=== PATIENT | female | born 1965 | race American Indian/Alaskan Native ===

== ENCOUNTER 2018-06-23 10:41 | Inpatient (IN) | payer MEDICARE ==
[2018-06-23] MEDS ORDERED: NACL 0.9% 500 ML 500 ML IV ONE (11:22)
--- NOTE | 2018-06-23 11:25 | Emergency Department Report ---
ED General Adult HPI - General Chief complaint: Altered Mental Status Stated complaint: POSS SEIZURE Time Seen by Provider: 06/23/18 11:15 Source: EMS (ems notes not available at time of chart dictation), RN notes reviewed Mode of arrival: Stretcher Limitations: Other (patient is demented and is a poor historian) - History of Present Illness Initial comments: This is a 52-year-old female who is not known to this provider previously. She has a past medical history of dementia. History is obtained by speaking to her daughter, process; [phone]. The patient has a history of dementia, and as per her daughter is typically able to complete her activities of daily living with minimal assistance. The patient is typically able to feed herself and walk without significant assistance. As per the patient's daughter, who received report from the patient's home health aide, the patient screamed earlier on today, began shaking, leans to the left, and has some drooling from her lips. This has since resolved. It is unknown what time this happened exactly, unknown how long that lasted for, and unknown if it had any exacerbating or relieving factors. The patient is nonverbal and does not follow commands, therefore we cannot elicit any additional information. -: This morning Radiation: other Quality: other Consistency: other Improves with: other Worsens with: other Associated Symptoms: confusion, syncope, weakness - Related Data Home Medications Medication Instructions Recorded Confirmed Last Taken traZODone [Desyrel] 50 mg PO QHS 06/23/18 06/23/18 06/22/18 Allergies Allergy/AdvReac Type Severity Reaction Status Date / Time Penicillins Allergy Anaphylaxis Verified 02/16/16 09:32 ED Review of Systems ROS: Stated complaint: POSS SEIZURE Other details as noted in HPI Comment: ros per daughter ED Past Medical Hx - Past Medical History Previous Medical History?: Yes Hx Dementia: Yes - Social History Smoking Status: Unknown if ever smoked - Medications Home Medications: Home Medications Medication Instructions Recorded Confirmed Last Taken Type traZODone [Desyrel] 50 mg PO QHS 06/23/18 06/23/18 06/22/18 History ED Physical Exam - General Limitations: Altered Mental Status General appearance: in no apparent distress - Head Head exam: Present: atraumatic, normocephalic - Eye Eye exam: Present: other (the patient closes her eyes tightly and will not allow me to perform pupillary examination). Absent: scleral icterus, conjunctival injection, periorbital swelling, periorbital tenderness - ENT ENT exam: Present: normal exam, normal orophraynx, normal external ear exam - Neck Neck exam: Present: normal inspection, full ROM. Absent: tenderness, meningismus - Respiratory Respiratory exam: Present: normal lung sounds bilaterally. Absent: respiratory distress, wheezes, rales, rhonchi, stridor, chest wall tenderness, accessory muscle use, decreased breath sounds, prolonged expiratory - Cardiovascular Cardiovascular Exam: Present: regular rate, normal rhythm, normal heart sounds. Absent: bradycardia, tachycardia, irregular rhythm, systolic murmur, diastolic murmur, rubs, gallop - GI/Abdominal GI/Abdominal exam: Present: soft. Absent: distended, tenderness, guarding, rebound, rigid, pulsatile mass - Extremities Exam Extremities exam: Present: normal inspection, full ROM, normal capillary refill , other (2+ pulses noted in the bilateral upper, lower extremities. Compartments soft. No long bony tenderness. The pelvis is stable.). Absent: tenderness, pedal edema, joint swelling, calf tenderness - Back Exam Back exam: Present: normal inspection, full ROM. Absent: tenderness, CVA tenderness (R), paraspinal tenderness, vertebral tenderness - Neurological Exam Neurological exam: Present: alert (the patient is demented and will not cooperate with a complete neurologic examination), altered (patient is demented. Patient is a poor historian.), other (there is no facial droop. Patient has 5 out of 5 strength bilateral upper, lower extremities. Sensation is intact to pin prick in the bilateral upper, lower extremities) - Psychiatric Psychiatric exam: Present: flat affect, other (patient is nonverbal and will not talk to me) - Skin Skin exam: Present: warm ED Course Vital Signs 06/23/18 06/23/18 06/23/18 10:52 13:50 14:00 Temperature 98.5 F Pulse Rate 85 83 86 Respiratory 16 16 16 Rate Blood Pressure 146/63 119/69 O2 Sat by Pulse 95 94 Oximetry - Reevaluation(s) Reevaluation #1: 06/23/18 11:59 Differential diagnosis, including but not limited to: Intracranial hemorrhage, pneumonia, stroke, transient ischemic attack, structural cardiac disease, acute coronary syndrome, arrhythmia, orthostasis, seizure, pseudoseizure Assessment and plan: 52-year-old female who has baseline dementia with fairly good functional status as per her daughter, who also describes no DVT or pulmonary embolus risk factors, who does not have a history of seizures, who presents with loss of consciousness, now resolved. Patient started gives verbal consent for IV medication to allow diagnostic and laboratory acquisition , nausea gives verbal consent for physical restraints if necessary. Patient is not a TPA candidate as her last known well time is not exactly known. In addition, given her underlying dementia, she is not considered a suitable for endovascular intervention, and is not require an emergent CT angiogram. Her motor exam is nonfocal as no obvious facial droop. Laboratory studies, urinalysis, CT scan pending. Reevaluation #2: 06/23/18 14:40 CT scan of the brain is negative. Vital signs have remained stable. Objective laboratory testing unremarkable. Patient's daughter endorses that the patient had a similar episode 3 weeks ago of syncope versus seizure and was seen at another hospital and was discharged. Patient will be admitted to the hospital for evaluation of seizure versus syncope. Patient's daughter further reiterates that the patient is not at her mental status baseline currently. Dr. Willard accepted the medical patient to his service. ED Medical Decision Making - Lab Data Result diagrams: 06/23/18 13:06 06/23/18 13:06 Vital Signs 06/23/18 10:52 Temperature 98.5 F Pulse Rate 85 Respiratory 16 Rate Blood Pressure 146/63 O2 Sat by Pulse 95 Oximetry Lab Results 06/23/18 06/23/18 06/23/18 Range/Units 13:06 13:06 13:06 WBC 5.4 (4.5-11.0) K/mm3 RBC 4.20 (3.65-5.03) M/mm3 Hgb 12.0 (10.1-14.3) gm/dl Hct 36.9 (30.3-42.9) % MCV 88 (79-97) fl MCH 29 (28-32) pg MCHC 33 (30-34) % RDW 14.1 (13.2-15.2) % Plt Count 295 (140-440) K/mm3 PT 13.3 (12.2-14.9) Sec. INR 0.96 (0.87-1.13) APTT 27.7 (24.2-36.6) Sec. Sodium 138 (137-145) mmol/L Potassium 4.7 (3.6-5.0) mmol/L Chloride 103.4 (98-107) mmol/L Carbon Dioxide 22 (22-30) mmol/L Anion Gap 17 mmol/L BUN 13 (7-17) mg/dL Creatinine 0.8 (0.7-1.2) mg/dL Estimated GFR > 60 ml/min BUN/Creatinine Ratio 16 % Glucose 90 (65-100) mg/dL Calcium 9.1 (8.4-10.2) mg/dL Total Bilirubin 0.50 (0.1-1.2) mg/dL AST 26 (5-40) units/L ALT 25 (7-56) units/L Alkaline Phosphatase 88 (35-129) units/L Troponin T (0.00-0.029) ng/mL Total Protein 7.8 (6.3-8.2) g/dL Albumin 3.5 L (3.9-5) g/dL Albumin/Globulin Ratio 0.8 % TSH (0.270-4.200) mlU/mL Urine Color (Yellow) Urine Turbidity (Clear) Urine pH (5.0-7.0) Ur Specific [place] (1.003-1.030) Urine Protein (Negative) mg/dL Urine Glucose (UA) (Negative) mg/dL Urine Ketones (Negative) mg/dL Urine Blood (Negative) Urine Nitrite (Negative) Urine Bilirubin (Negative) Urine Urobilinogen (<2.0) mg/dL Ur Leukocyte Esterase (Negative) Urine WBC (Auto) (0.0-6.0) /HPF Urine RBC (Auto) (0.0-6.0) /HPF U Epithel Cells (Auto) (0-13.0) /HPF Urine Bacteria (Auto) (Negative) /HPF Urine Mucus /HPF Salicylates (2.8-20.0) mg/dL Acetaminophen (10.0-30.0) ug/mL Plasma/Serum Alcohol (0-0.07) % 06/23/18 06/23/18 06/23/18 Range/Units 13:06 13:06 13:06 WBC (4.5-11.0) K/mm3 RBC (3.65-5.03) M/mm3 Hgb (10.1-14.3) gm/dl Hct (30.3-42.9) % MCV (79-97) fl MCH (28-32) pg MCHC (30-34) % RDW (13.2-15.2) % Plt Count (140-440) K/mm3 PT (12.2-14.9) Sec. INR (0.87-1.13) APTT (24.2-36.6) Sec. Sodium (137-145) mmol/L Potassium (3.6-5.0) mmol/L Chloride (98-107) mmol/L Carbon Dioxide (22-30) mmol/L Anion Gap mmol/L BUN (7-17) mg/dL Creatinine (0.7-1.2) mg/dL Estimated GFR ml/min BUN/Creatinine Ratio % Glucose (65-100) mg/dL Calcium (8.4-10.2) mg/dL Total Bilirubin (0.1-1.2) mg/dL AST (5-40) units/L ALT (7-56) units/L Alkaline Phosphatase (35-129) units/L Troponin T (0.00-0.029) ng/mL Total Protein (6.3-8.2) g/dL Albumin (3.9-5) g/dL Albumin/Globulin Ratio % TSH 2.000 (0.270-4.200) mlU/mL Urine Color (Yellow) Urine Turbidity (Clear) Urine pH (5.0-7.0) Ur Specific [place] (1.003-1.030) Urine Protein (Negative) mg/dL Urine Glucose (UA) (Negative) mg/dL Urine Ketones (Negative) mg/dL Urine Blood (Negative) Urine Nitrite (Negative) Urine Bilirubin (Negative) Urine Urobilinogen (<2.0) mg/dL Ur Leukocyte Esterase (Negative) Urine WBC (Auto) (0.0-6.0) /HPF Urine RBC (Auto) (0.0-6.0) /HPF U Epithel Cells (Auto) (0-13.0) /HPF Urine Bacteria (Auto) (Negative) /HPF Urine Mucus /HPF Salicylates < 0.3 L (2.8-20.0) mg/dL Acetaminophen < 5.0 L (10.0-30.0) ug/mL Plasma/Serum Alcohol (0-0.07) % 06/23/18 06/23/18 06/23/18 Range/Units 13:06 13:06 13:06 WBC (4.5-11.0) K/mm3 RBC (3.65-5.03) M/mm3 Hgb (10.1-14.3) gm/dl Hct (30.3-42.9) % MCV (79-97) fl MCH (28-32) pg MCHC (30-34) % RDW (13.2-15.2) % Plt Count (140-440) K/mm3 PT (12.2-14.9) Sec. INR (0.87-1.13) APTT (24.2-36.6) Sec. Sodium (137-145) mmol/L Potassium (3.6-5.0) mmol/L Chloride (98-107) mmol/L Carbon Dioxide (22-30) mmol/L Anion Gap mmol/L BUN (7-17) mg/dL Creatinine (0.7-1.2) mg/dL Estimated GFR ml/min BUN/Creatinine Ratio % Glucose (65-100) mg/dL Calcium (8.4-10.2) mg/dL Total Bilirubin (0.1-1.2) mg/dL AST (5-40) units/L ALT (7-56) units/L Alkaline Phosphatase (35-129) units/L Troponin T < 0.010 (0.00-0.029) ng/mL Total Protein (6.3-8.2) g/dL Albumin (3.9-5) g/dL Albumin/Globulin Ratio % TSH (0.270-4.200) mlU/mL Urine Color Yellow (Yellow) Urine Turbidity Clear (Clear) Urine pH 6.0 (5.0-7.0) Ur Specific [place] 1.014 (1.003-1.030) Urine Protein <15 mg/dl (Negative) mg/dL Urine Glucose (UA) Neg (Negative) mg/dL Urine Ketones Neg (Negative) mg/dL Urine Blood Neg (Negative) Urine Nitrite Neg (Negative) Urine Bilirubin Neg (Negative) Urine Urobilinogen < 2.0 (<2.0) mg/dL Ur Leukocyte Esterase Neg (Negative) Urine WBC (Auto) 1.0 (0.0-6.0) /HPF Urine RBC (Auto) 3.0 (0.0-6.0) /HPF U Epithel Cells (Auto) < 1.0 (0-13.0) /HPF Urine Bacteria (Auto) 1+ (Negative) /HPF Urine Mucus Few /HPF Salicylates (2.8-20.0) mg/dL Acetaminophen (10.0-30.0) ug/mL Plasma/Serum Alcohol < 0.01 (0-0.07) % - EKG Data -: EKG Interpreted by Me EKG shows normal: sinus rhythm - EKG Data When compared to previous EKG there are: previous EKG unavailable 06/23/18 12:02 Sinus, 82 bpm, left axis deviation, left anterior fascicular block, prolonged borderline UT interval, abnormal EKG, not a STEMI, poor R-wave progression. - Radiology Data Radiology results: pending, report reviewed, image reviewed Noncontrast CT scan of the brain is negative. X-ray the chest is negative. Critical care attestation.: If time is entered above; I have spent that time in minutes in the direct care of this critically ill patient, excluding procedure time. ED Disposition Clinical Impression: Altered mental status, unspecified Disposition: DC-[id number] OP ADMIT IP TO THIS HOSP Is pt being admited?: Yes Does the pt Need Aspirin: Yes Condition: Good Referrals: PRIMARY CARE, [Primary Care Provider] - 3-5 Days - Assessment Assessment Interval: Baseline - Level of Consciousness 1a. Level of Consciousness: not alert, arousable - LOC Questions 1b. LOC Questions: answers no questions correctly - LOC Command 1c. LOC Commands: performs no tasks correctly - Best Gaze 2. Best Gaze: normal (unable to assess) - Visual 3. Visual: bilateral hemianopia (unable to assess) - Facial Palsy 4. Facial Palsy: normal symmetrical movement - Motor Arm 5b. Motor Arm Right: drift 5a. Motor Arm Left: drift - Motor Leg 6a. Motor Leg Left: drift 6b. Motor Leg Right: drift - Limb Ataxia 7. Limb Ataxia: amputation (unable to assess) - Sensory 8. Sensory: normal - Best Language 9. Best Language: mute/global aphasia - Dysarthria 10. Dysarthria: intubated or other barrier - Extinction and Inattention 11. Extinction/Inattention: visual/tactile inattention
[2018-06-23] MEDS ORDERED: ATIVAN IV STA (11:50)
--- NOTE | 2018-06-23 11:54 | XRay Report ---
AP CHEST: HISTORY: Altered mental status There is poor inspiration. AP view of the chest demonstrates a normal mediastinal and cardiac contour with clear lungs and normal bony and soft tissue structures. IMPRESSION: Unremarkable AP chest.
--- NOTE | 2018-06-23 12:23 | Cat Scan Report ---
CT HEAD WITHOUT CONTRAST: HISTORY: Altered mental status. TECHNIQUE: Sequential 2.5mm CT images. COMPARISON: none. FINDINGS: Cerebral Parenchyma: Within normal limits. Cerebellum: Within normal limits. Brainstem: Within normal limits. Ventricles: Normal. Sella: Normal. Extra-axial spaces: Normal. Basal Cisterns: Normal. Intracranial Hemorrhage: None. Midline Shift: None. Calvarium: Normal. Sinuses: Normal. Mastoid Air Cells: Normal. Visualized Orbits: Normal. IMPRESSION: Cranial CT scan within normal limits.
[2018-06-23 13:23] LABS: Bacteria,Urine 1+ /HPF (Negative); Bilirubin,Urine NEG (Negative); Blood,Urine NEG (Negative); Color,Urine Yellow (Yellow); Mucus,Urine FEW /HPF; Protein,Urine <15 mg/dL mg/dL (Negative); Urobilinogen,Urine < 2.0 mg/dL (<2.0)
[2018-06-23 13:33] LABS: Hematocrit 36.9 % (30.3-42.9); Mean Corpuscular HGB Conc 33 % (30-34); Mean Corpuscular Hemoglobin 29 pg (28-32); Mean Corpuscular Volume 88 fl (79-97); Platelet Count 295 K/mm3 (140-440); Red Cell Distribution Width 14.1 % (13.2-15.2)
[2018-06-23 13:44] LABS: INR 0.96 (0.87-1.13); Partial Thromboplastin Time 27.7 Sec. (24.2-36.6)
[2018-06-23 13:54] LABS: Alanine Aminotransferase 25 units/L (7-56); Albumin 3.5 g/dL (3.9-5); BUN/Creatinine Ratio 16; Blood Urea Nitrogen 13 mg/dL (7-17); Calcium 9.1 mg/dL (8.4-10.2); Hemolysis Index 20
[2018-06-23] MEDS ORDERED: BABY ASPIRIN PO ONE (14:41)
--- NOTE | 2018-06-23 14:41 | History and Physical Report ---
History of Present Illness Chief complaint: She is confused, and not moving History of present illness: 52 YO Female with Dementia, Debility presents to ED for evaluation. Pt is confused and unable to provide history. Pt daughter is at bedside and provides history. As per daughter, the patient experienced an acute onset of weakness resulting in an inability to move the left side of her body, as well as drooling from the mouth. EMS was notified, and upon arrival the patient was found to be weak and confused. Pt transported to [facility] for further care and evaluation. Pt seen and evaluated in ED and found to have symptoms consistent with Acute CVA, as well as encephalopathy. Pt is outside therapeutic window for TPA at time of my exam. No further history available. Pt admitted to telemetry and initiated on CVA protocol. Past History Past Medical History: other (Dementia) Past Surgical History: No surgical history, Other (reviewed) Social history: . denies: smoking, alcohol abuse, prescription drug abuse Family history: hypertension Medications and Allergies Allergies Allergy/AdvReac Type Severity Reaction Status Date / Time Penicillins Allergy Anaphylaxis Verified 02/16/16 09:32 Home Medications Medication Instructions Recorded Confirmed Last Taken Type traZODone [Desyrel] 50 mg PO QHS 06/23/18 06/23/18 06/22/18 History Review of Systems ROS unobtainable: due to mental status Exam - Constitutional Vitals: Temp Pulse Resp BP Pulse Ox 98.5 F 86 16 119/69 94 06/23/18 10:52 06/23/18 14:00 06/23/18 14:00 06/23/18 14:00 06/23/18 14:00 General appearance: Present: mild distress - EENT Eyes: Present: miosis - Neck Neck: Present: supple - Respiratory Respiratory effort: normal Respiratory: bilateral: CTA - Cardiovascular Heart Sounds: Present: S1 & S2. Absent: rub, click - Extremities Extremities: pulses symmetrical, No edema Peripheral Pulses: within normal limits - Abdominal General gastrointestinal: Present: soft, non-tender, non-distended, normal bowel sounds Female genitourinary: Present: normal - Integumentary Integumentary: Present: clear, dry, decreased turgor - Musculoskeletal Musculoskeletal: generalized weakness - Psychiatric Psychiatric: no intact judgment & insight, no memory intact - Neurologic Neurologic: no CNII-XII intact, focal deficits, no gait normal Results - Labs CBC & Chem 7: 06/23/18 13:06 06/23/18 13:06 Labs: Abnormal lab results 06/23/18 06/23/18 06/23/18 Range/Units 13:06 13:06 13:06 Total Creatine Kinase 209 H (30-135) units/L Albumin 3.5 L (3.9-5) g/dL Salicylates < 0.3 L (2.8-20.0) mg/dL Acetaminophen < 5.0 L (10.0-30.0) ug/mL Assessment and Plan - Patient Problems (1) CVA (cerebral vascular accident) Current Visit: Yes Status: Acute Qualifiers: Precerebral and cerebral artery: middle cerebral artery Laterality of affected vessel: right Plan to address problem: Admit to telemetry: Stroke protocol, CT head, MRI Brain, MRA Brain, Echo, Carotid Doppler, Lipid panel, Statin Therapy, EEG, PT/OT/ Speech therapy (2) Encephalopathy Current Visit: Yes Status: Acute Plan to address problem: CT head, neuro checks, aspiration precautions, fall precautions, seizure precautions, (3) DVT prophylaxis Current Visit: Yes Status: Acute Plan to address problem: SCD to BLE while in bed.
[2018-06-23] MEDS ORDERED: PHENERGAN PR PRN (14:42)
[2018-06-23] MEDS ORDERED: REGLAN PO PRN (14:42)
[2018-06-23] MEDS ORDERED: ZOFRAN IV PRN (14:42)
[2018-06-23] MEDS ORDERED: MILK OF MAGNESIA PO PRN (14:42)
[2018-06-23] MEDS ORDERED: TYLENOL PO PRN (14:42)
[2018-06-23] MEDS ORDERED: DULCOLAX PR PRN (14:42)
[2018-06-23] MEDS ORDERED: PROVENTIL IH PRN (14:42)
[2018-06-23] MEDS ORDERED: BABY ASPIRIN ONE (17:31)
[2018-06-24] MEDS: DESYREL PO SCH ×2 (00:20→23:59)
[2018-06-24 06:20] LABS: Chol/HDL Ratio 3.41 %
--- NOTE | 2018-06-24 09:29 | Progress Note ---
Assessment and Plan Assessment and plan: --Seizure generalized; seizure-like activities Seizure precautions, antiepileptic medications, Ativan when necessary Neuro workup is in progress --Aphasia; unknown etiology Daughter reports patient stopped talking and is noncommunicative --Hypertension; continue current antihypertensives and when necessary medications --History of memory loss; Supportive care, check B12 and folic acid vitamin D levels --DVT prophylaxis; Lovenox Consult neurology, follow neurology workup --DC planning for case management; possible placement versus home with home health when medically stable History Interval history: Patient seen and examined medical records reviewed No new events reported by nursing staff Admitted with seizure-like symptoms and questionable CVA Neuro workup is in progress The patient is alert noncommunicative Vital signs reviewed Hospitalist Physical - Constitutional Vitals: Temp Pulse Resp BP Pulse Ox 98.3 F 80 20 167/89 100 06/24/18 04:56 06/24/18 04:18 06/24/18 04:56 06/24/18 04:18 06/24/18 04:18 General appearance: Present: no acute distress, well-nourished, obese, other ( noncommunicative) - EENT Eyes: Present: PERRL, EOM intact - Neck Neck: Present: supple, normal ROM - Respiratory Respiratory effort: normal Respiratory: bilateral: diminished, negative: rales, rhonchi, wheezing - Cardiovascular Rhythm: regular Heart Sounds: Present: S1 & S2 - Extremities Extremities: no ischemia, No edema - Abdominal General gastrointestinal: soft, non-tender, non-distended, normal bowel sounds - Integumentary Integumentary: Present: clear, warm - Psychiatric Psychiatric: other (noncommunicative) - Neurologic Neurologic: other ( noncommunicative) Results - Labs CBC & Chem 7: 06/23/18 13:06 06/23/18 13:06 Labs: Laboratory Last Values WBC 5.4 K/mm3 (4.5-11.0) 06/23/18 13:06 RBC 4.20 M/mm3 (3.65-5.03) 06/23/18 13:06 Hgb 12.0 gm/dl (10.1-14.3) 06/23/18 13:06 Hct 36.9 % (30.3-42.9) 06/23/18 13:06 MCV 88 fl (79-97) 06/23/18 13:06 MCH 29 pg (28-32) 06/23/18 13:06 MCHC 33 % (30-34) 06/23/18 13:06 RDW 14.1 % (13.2-15.2) 06/23/18 13:06 Plt Count 295 K/mm3 (140-440) 06/23/18 13:06 PT 13.3 Sec. (12.2-14.9) 06/23/18 13:06 INR 0.96 (0.87-1.13) 06/23/18 13:06 APTT 27.7 Sec. (24.2-36.6) 06/23/18 13:06 Sodium 138 mmol/L (137-145) 06/23/18 13:06 Potassium 4.7 mmol/L (3.6-5.0) 06/23/18 13:06 Chloride 103.4 mmol/L (98-107) 06/23/18 13:06 Carbon Dioxide 22 mmol/L (22-30) 06/23/18 13:06 Anion Gap 17 mmol/L 06/23/18 13:06 BUN 13 mg/dL (7-17) 06/23/18 13:06 Creatinine 0.8 mg/dL (0.7-1.2) 06/23/18 13:06 Estimated GFR > 60 ml/min 06/23/18 13:06 BUN/Creatinine Ratio 16 % 06/23/18 13:06 Glucose 90 mg/dL (65-100) 06/23/18 13:06 Calcium 9.1 mg/dL (8.4-10.2) 06/23/18 13:06 Total Bilirubin 0.50 mg/dL (0.1-1.2) 06/23/18 13:06 AST 26 units/L (5-40) 06/23/18 13:06 ALT 25 units/L (7-56) 06/23/18 13:06 Alkaline Phosphatase 88 units/L (35-129) 06/23/18 13:06 Total Creatine Kinase 209 units/L (30-135) H 06/23/18 13:06 Troponin T < 0.010 ng/mL (0.00-0.029) 06/23/18 13:06 Total Protein 7.8 g/dL (6.3-8.2) 06/23/18 13:06 Albumin 3.5 g/dL (3.9-5) L 06/23/18 13:06 Albumin/Globulin Ratio 0.8 % 06/23/18 13:06 Triglycerides 68 mg/dL (2-149) 06/24/18 04:40 Cholesterol 147 mg/dL (50-199) 06/24/18 04:40 LDL Cholesterol Direct 99 mg/dL (50-130) 06/24/18 04:40 HDL Cholesterol 43 mg/dL (40-59) 06/24/18 04:40 Cholesterol/HDL Ratio 3.41 % 06/24/18 04:40 TSH 2.000 mlU/mL (0.270-4.200) 06/23/18 13:06 Urine Color Yellow (Yellow) 06/23/18 13:06 Urine Turbidity Clear (Clear) 06/23/18 13:06 Urine pH 6.0 (5.0-7.0) 06/23/18 13:06 Ur Specific [place] 1.014 (1.003-1.030) 06/23/18 13:06 Urine Protein <15 mg/dl mg/dL (Negative) 06/23/18 13:06 Urine Glucose (UA) Neg mg/dL (Negative) 06/23/18 13:06 Urine Ketones Neg mg/dL (Negative) 06/23/18 13:06 Urine Blood Neg (Negative) 06/23/18 13:06 Urine Nitrite Neg (Negative) 06/23/18 13:06 Urine Bilirubin Neg (Negative) 06/23/18 13:06 Urine Urobilinogen < 2.0 mg/dL (<2.0) 06/23/18 13:06 Ur Leukocyte Esterase Neg (Negative) 06/23/18 13:06 Urine WBC (Auto) 1.0 /HPF (0.0-6.0) 06/23/18 13:06 Urine RBC (Auto) 3.0 /HPF (0.0-6.0) 06/23/18 13:06 U Epithel Cells (Auto) < 1.0 /HPF (0-13.0) 06/23/18 13:06 Urine Bacteria (Auto) 1+ /HPF (Negative) 06/23/18 13:06 Urine Mucus Few /HPF 06/23/18 13:06 Salicylates < 0.3 mg/dL (2.8-20.0) L 06/23/18 13:06 Acetaminophen < 5.0 ug/mL (10.0-30.0) L 06/23/18 13:06 Plasma/Serum Alcohol < 0.01 % (0-0.07) 06/23/18 13:06
[2018-06-24] MEDS: ASPIRIN PO SCH (11:46)
[2018-06-24] MEDS ORDERED: ATIVAN IV ONE (13:40)
[2018-06-24] MEDS ORDERED: ATIVAN IV NR (14:00)
--- NOTE | 2018-06-24 14:27 | Consultation ---
History of Present Illness Consult date: 06/24/18 Requesting physician: EDDIE VANN Reason for Consult: seizure, dysphasia Chief complaint: seizure, dysphasia History of present illness: This 52-year-old right-handed -[place] female with a history of dementia for one or 2 years had an episode yesterday around 10 AM of a scream followed by shaking and drooling. This happened also in the first week of May for which she was seen at [facility] where CT scan was negative but no other testing was done. She been seen in [place] in the past for dementia but no MRI or PET scan was done or EEG. No medications were given. She's had greatly decreased speech for the past 3-5 months but she will utter an occasional phrase. Past History Past Medical History: hypertension (previous on medication but has not needed them for a while), other (Dementia). denies: CAD, diabetes, stroke Past Surgical History: No surgical history, hysterectomy (total), Other ( required transfusion after delivery) Social history: (2 children and 2 grandchildren alive and well), other ( has not worked for 6 or 7 years, previously worked in daycare). denies: smoking , alcohol abuse, prescription drug abuse, IV drug use Family history: hypertension (mother and sister), other (no history of epilepsy , fairly early onset dementia in her mother at age 53, maternal uncle in late 50s and maternal aunt in her 50s). denies: diabetes, stroke Medications and Allergies Allergies Allergy/AdvReac Type Severity Reaction Status Date / Time Penicillins Allergy Anaphylaxis Verified 02/16/16 09:32 Home Medications Medication Instructions Recorded Confirmed Last Taken Type traZODone [Desyrel] 50 mg PO QHS 06/23/18 06/23/18 06/22/18 History Active Meds: Active Medications Acetaminophen (Tylenol) 650 mg PO Q4H PRN PRN Reason: Pain, Mild (1-3) Albuterol (Proventil) 2.5 mg IH Q3HRT PRN PRN Reason: Shortness Of Breath Aspirin (Aspirin) 325 mg PO QDAY [facility] Last Admin: 06/24/18 11:46 Dose: 325 mg Atorvastatin Calcium (Lipitor) 40 mg PO QHS [facility] Last Admin: 06/24/18 00:20 Dose: Not Given Bisacodyl (Dulcolax) 10 mg MI QDAY PRN PRN Reason: Constipation Lorazepam (Ativan) 2 mg IV STRIPER SPRAY GUN NR Magnesium Hydroxide (Milk Of Magnesia) 30 ml PO Q4H PRN PRN Reason: Constipation Metoclopramide HCl (Reglan) 10 mg PO Q6H PRN PRN Reason: Nausea And Vomiting Ondansetron HCl (Zofran) 4 mg IV Q8H PRN PRN Reason: Nausea And Vomiting Promethazine HCl (Phenergan) 25 mg MI Q6H PRN PRN Reason: Nausea And Vomiting Sodium Chloride (Sodium Chloride Flush Syringe 10 Ml) 10 ml IV PRN PRN PRN Reason: LINE FLUSH Trazodone HCl (Desyrel) 50 mg PO QHS [facility] Last Admin: 06/24/18 00:20 Dose: Not Given Review of Systems All systems: negative (no headaches or dizziness, loud snoring but no pauses and never tested for sleep apnea, naps for an hour but no other dozing off, sleeps for 8 hours) Physical Examination - Vital Signs Vital Signs: Vital Signs Temp Pulse Resp BP Pulse Ox 98.5 F 85 16 146/63 95 06/23/18 10:52 06/23/18 10:52 06/23/18 10:52 06/23/18 10:52 06/23/18 10:52 - Physical Exam Narrative exam: General Appearance: well developed but borderline obese (per BMI) early 50s -[place] female in [facility], seen with her daughter. HEENT: atraumatic, normocephalic; no bruits, 2+ [place] without soreness or induration or enlargement, sclerae nonicteric. Oropharynx pink and moist. Neck: supple, no bruits. Heart: no murmur or extra sounds. Extremities: no clubbing, cyanosis or edema. 2+ dorsalis pedis pulses bilaterally. Neurologic Exam: Mental Status: Awake, alert, will not respond to orientation questions, says only a few words occasionally, will not name her daughter or the president etc. Cannot do calculations but does name "comb" but not the teeth of the comb, will not name "pen" or "keys". Cranial Nerves: sandoval full to threat, can't see discs due to lack of cooperation, PERRL, EOMs full obtain easily without nystagmus, facial sensation intact to pinprick, no facial weakness, cannot answer for Zepeda testing, not see palate due to prominent suck response and cannot reach back of throat to check gags, will not do shoulder shrug or tongue protrusion despite visual examples. Cerebellar: won't do finger to nose or heel to pitts or tandem. Sensory: intact to pinprick, cannot check vibrations or light touch or double simultaneous stimulation is intact. Motor Exam Upper Extremities: no drift when hands are placed in the air but quickly folds her arms across each other, Sarah Beth intact. 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 No atrophy or fasciculations are noted visually. Motor Exam Lower Extremities: walks ok with bilateral support but cannot walk on heels or toes. Will not do pedal push on either side but quadriceps are 4- bilaterally, triggered reflexively to touch. Sarah Beth shows normal wiggling of feet. Tone is normal. No atrophy or fasciculations are noted visually. Reflexes: Palmomental and jaw jerk are negative but snout is positive and she has a prominent suck reflex. Triceps are trace, biceps are trace and brachioradialis are 1 right and trace left. Carl's is negative bilaterally. Knee jerks are 0 right and 1 left and ankle jerks are 1+ bilaterally without clonus. Toes are downgoing bilaterally to Babinski testing. - Assessment Assessment Interval: Baseline - Level of Consciousness 1a. Level of Consciousness: not alert, arousable - LOC Questions 1b. LOC Questions: answers no questions correctly - LOC Command 1c. LOC Commands: performs no tasks correctly - Best Gaze 2. Best Gaze: normal (unable to assess) - Visual 3. Visual: bilateral hemianopia (unable to assess) - Facial Palsy 4. Facial Palsy: normal symmetrical movement - Motor Arm 5b. Motor Arm Right: drift - Motor Leg 6a. Motor Leg Left: drift - Limb Ataxia 7. Limb Ataxia: amputation (unable to assess) - Sensory 8. Sensory: normal - Best Language 9. Best Language: mute/global aphasia - Dysarthria 10. Dysarthria: intubated or other barrier - Extinction and Inattention 11. Extinction/Inattention: visual/tactile inattention Results - Laboratory Findings CBC and BMP: 06/23/18 13:06 06/23/18 13:06 Abnormal Lab Findings: Abnormal Labs 06/23/18 06/23/18 06/23/18 13:06 13:06 13:06 Total Creatine Kinase 209 H Albumin 3.5 L Salicylates < 0.3 L Acetaminophen < 5.0 L Assessment and Plan Impression: 1. Dysphasia 2. Secondarily generalized seizures, nonintractable 3. Memory loss Plan: 1. MRI brain noncontrast with noncontrast brain MRA. 2. Will need CT angiogram of neck from aortic arch to base of skull for completeness if any strokes, old or new are seen. 3. EEG. I explained this may be normal even with seizures since it is a small snapshot in time. 4. Memory labs including vitamin D 25 OH, ESR, CRP. 5. Will start her on divalproex for seizures 500 mg bid after 2000 mg iv loading dose. See my comments about further building it up. Later a new neurologist might consider changing her to lamotrigine. 6. LDL is 99 so probably only needs 10 or 20 mg atorvastatin since she was not on a statin. Agree with aspirin but could reduce to 81 mg chewable aspirin daily. Local neurologist can decide whether to pursue 30 day event monitoring for PAF. Echo has been done but no reading yet. 70 minutes spent including review of CT scan multiple images and discussion with daughter and difficult exam due to dysphasia. Thank you for an interesting consultation on this unfortunate early 50s lady. I will provide an EEG preliminary reading. Signing off, call for any questions or unusual test results. She should be followed by a local neurologist for dementia and seizures. May be a candidate for memantine. Would avoid Aricept ( donepezil) since it can cause seizures.
[2018-06-24] MEDS ORDERED: NACL 0.9% IV ONE (14:57)
[2018-06-24] MEDS ORDERED: DEPACON IV ONE (14:57)
--- NOTE | 2018-06-24 16:58 | Electroencephalogram Report ---
Electroencephalogram EEG Date of exam: 06/24/18 Description: EEG preliminary findings: EEG was done after administration of Ativan. No clear alpha activity is seen. EMG and movement artifact is prominent. There are few instances of a small sharp spike in the left temporal region with phase reversal at T5 as for example in the the 7th second of the page with elapsed time stamp 00:04:30 and at the same timing for elapsed time stamp 00:04:40. Intermittent slowing is seen bilaterally attributable to drowsiness. Though small sharp spikes are usually not considered abnormal, the fact that they are unilateral suggests they may be epileptiform. Interpretation: Preliminary EEG reading: Abnormal waking and drowsy electroencephalogram due to intermittent possibly epileptiform activity in the left temporal region.
--- NOTE | 2018-06-25 09:52 | Progress Note ---
Assessment and Plan Assessment and plan: --Seizure generalized; seizure-like activities Seizure precautions, antiepileptic medications, Ativan when necessary Neuro workup is in progress, follow MRI/MRA --Aphasia; unknown etiology Daughter reports patient stopped talking and is noncommunicative --Hypertension; continue current antihypertensives and when necessary medications --History of memory loss; Supportive care, check B12 and folic acid vitamin D levels --DVT prophylaxis; Lovenox Consult neurology, follow neurology workup --DC planning for case management; possible placement versus home with home health when medically stable History Interval history: Patient seen and examined medical records reviewed No new events reported by the nursing Neuro workup is in progress Patient is responding to very simple questions by telling her name Vital signs reviewed Hospitalist Physical - Constitutional Vitals: Temp Pulse Resp BP Pulse Ox 98.3 F 85 18 126/78 99 06/25/18 06:39 06/25/18 06:39 06/25/18 06:39 06/25/18 06:39 06/25/18 06:39 General appearance: Present: no acute distress, well-nourished, obese, other ( noncommunicative) - EENT Eyes: Present: PERRL, EOM intact - Neck Neck: Present: supple, normal ROM - Respiratory Respiratory effort: normal Respiratory: bilateral: diminished, negative: rales, rhonchi, wheezing - Cardiovascular Rhythm: regular Heart Sounds: Present: S1 & S2 - Extremities Extremities: no ischemia, No edema - Abdominal General gastrointestinal: soft, non-tender, non-distended, normal bowel sounds - Integumentary Integumentary: Present: clear, warm - Psychiatric Psychiatric: appropriate mood/affect, cooperative - Neurologic Neurologic: CNII-XII intact, moves all extremities Results - Labs CBC & Chem 7: 06/23/18 13:06 06/23/18 13:06 Labs: Laboratory Last Values WBC 5.4 K/mm3 (4.5-11.0) 06/23/18 13:06 RBC 4.20 M/mm3 (3.65-5.03) 06/23/18 13:06 Hgb 12.0 gm/dl (10.1-14.3) 06/23/18 13:06 Hct 36.9 % (30.3-42.9) 06/23/18 13:06 MCV 88 fl (79-97) 06/23/18 13:06 MCH 29 pg (28-32) 06/23/18 13:06 MCHC 33 % (30-34) 06/23/18 13:06 RDW 14.1 % (13.2-15.2) 06/23/18 13:06 Plt Count 295 K/mm3 (140-440) 06/23/18 13:06 ESR 67 mm/Hr (0-20) 06/24/18 16:11 PT 13.3 Sec. (12.2-14.9) 06/23/18 13:06 INR 0.96 (0.87-1.13) 06/23/18 13:06 APTT 27.7 Sec. (24.2-36.6) 06/23/18 13:06 Sodium 138 mmol/L (137-145) 06/23/18 13:06 Potassium 4.7 mmol/L (3.6-5.0) 06/23/18 13:06 Chloride 103.4 mmol/L (98-107) 06/23/18 13:06 Carbon Dioxide 22 mmol/L (22-30) 06/23/18 13:06 Anion Gap 17 mmol/L 06/23/18 13:06 BUN 13 mg/dL (7-17) 06/23/18 13:06 Creatinine 0.8 mg/dL (0.7-1.2) 06/23/18 13:06 Estimated GFR > 60 ml/min 06/23/18 13:06 BUN/Creatinine Ratio 16 % 06/23/18 13:06 Glucose 90 mg/dL (65-100) 06/23/18 13:06 Calcium 9.1 mg/dL (8.4-10.2) 06/23/18 13:06 Total Bilirubin 0.50 mg/dL (0.1-1.2) 06/23/18 13:06 AST 26 units/L (5-40) 06/23/18 13:06 ALT 25 units/L (7-56) 06/23/18 13:06 Alkaline Phosphatase 88 units/L (35-129) 06/23/18 13:06 Total Creatine Kinase 209 units/L (30-135) H 06/23/18 13:06 Troponin T < 0.010 ng/mL (0.00-0.029) 06/23/18 13:06 C-Reactive Protein 1.90 mg/dL (0.00-1.30) H 06/24/18 16:21 Total Protein 7.8 g/dL (6.3-8.2) 06/23/18 13:06 Albumin 3.5 g/dL (3.9-5) L 06/23/18 13:06 Albumin/Globulin Ratio 0.8 % 06/23/18 13:06 Triglycerides 68 mg/dL (2-149) 06/24/18 04:40 Cholesterol 147 mg/dL (50-199) 06/24/18 04:40 LDL Cholesterol Direct 99 mg/dL (50-130) 06/24/18 04:40 HDL Cholesterol 43 mg/dL (40-59) 06/24/18 04:40 Cholesterol/HDL Ratio 3.41 % 06/24/18 04:40 Vitamin B12 514.3 pg/mL (211-911) 06/24/18 16:20 Folate 17.06 ng/mL (7.3-26.0) 06/24/18 16:21 TSH 2.000 mlU/mL (0.270-4.200) 06/23/18 13:06 Free T4 1.23 ng/dL (0.76-1.46) 06/24/18 16:11 Urine Color Yellow (Yellow) 06/23/18 13:06 Urine Turbidity Clear (Clear) 06/23/18 13:06 Urine pH 6.0 (5.0-7.0) 06/23/18 13:06 Ur Specific [place] 1.014 (1.003-1.030) 06/23/18 13:06 Urine Protein <15 mg/dl mg/dL (Negative) 06/23/18 13:06 Urine Glucose (UA) Neg mg/dL (Negative) 06/23/18 13:06 Urine Ketones Neg mg/dL (Negative) 06/23/18 13:06 Urine Blood Neg (Negative) 06/23/18 13:06 Urine Nitrite Neg (Negative) 06/23/18 13:06 Urine Bilirubin Neg (Negative) 06/23/18 13:06 Urine Urobilinogen < 2.0 mg/dL (<2.0) 06/23/18 13:06 Ur Leukocyte Esterase Neg (Negative) 06/23/18 13:06 Urine WBC (Auto) 1.0 /HPF (0.0-6.0) 06/23/18 13:06 Urine RBC (Auto) 3.0 /HPF (0.0-6.0) 06/23/18 13:06 U Epithel Cells (Auto) < 1.0 /HPF (0-13.0) 06/23/18 13:06 Urine Bacteria (Auto) 1+ /HPF (Negative) 06/23/18 13:06 Urine Mucus Few /HPF 06/23/18 13:06 Salicylates < 0.3 mg/dL (2.8-20.0) L 06/23/18 13:06 Acetaminophen < 5.0 ug/mL (10.0-30.0) L 06/23/18 13:06 Plasma/Serum Alcohol < 0.01 % (0-0.07) 06/23/18 13:06
[2018-06-25] MEDS ORDERED: ATIVAN IV NR (10:30)
[2018-06-25] MEDS: ASPIRIN PO SCH (11:41)
[2018-06-25] MEDS: SODIUM CHLORIDE FLUSH SYRINGE 10 ML IV PRN ×2 (11:44→23:14)
[2018-06-25] MEDS: DESYREL PO SCH (23:13)
[2018-06-26] MEDS: ASPIRIN PO SCH (11:22)
--- NOTE | 2018-06-26 12:59 | Progress Note ---
Assessment and Plan Assessment and plan: --Aphasia; unknown etiology Daughter reports patient stopped talking and is noncommunicative -Seizure generalized; seizure-like activities Seizure precautions, antiepileptic medications, Ativan when necessary Neuro workup is in progress, MRI/MRA could not be done due to technical reasons Possible MRI MRA in 2 days, neurology evaluated the patient --Hypertension; continue current antihypertensives and when necessary medications --History of memory loss; Supportive care, check B12 and folic acid vitamin D levels --DVT prophylaxis; Lovenox --DC planning for case management; possible placement versus home with home health when medically stable History Interval history: Patient seen and examined medical records reviewed Patient was seen getting agitated last night requiring restraints This morning patient is confused and nonverbal, not in acute distress Vital signs reviewed Hospitalist Physical - Constitutional Vitals: Temp Pulse Resp BP Pulse Ox 98.4 F 77 18 109/67 95 06/26/18 05:24 06/26/18 05:24 06/26/18 05:24 06/26/18 05:24 06/26/18 08:50 General appearance: Present: no acute distress, well-nourished, obese, other ( noncommunicative) - EENT Eyes: Present: PERRL, EOM intact - Neck Neck: Present: supple, normal ROM - Respiratory Respiratory effort: normal Respiratory: bilateral: diminished, negative: rales, rhonchi, wheezing - Cardiovascular Rhythm: regular Heart Sounds: Present: S1 & S2 - Extremities Extremities: no ischemia, No edema Peripheral Pulses: within normal limits - Abdominal General gastrointestinal: soft, non-tender, non-distended, normal bowel sounds - Integumentary Integumentary: Present: clear, warm - Psychiatric Psychiatric: appropriate mood/affect, cooperative - Neurologic Neurologic: CNII-XII intact, moves all extremities Results - Labs CBC & Chem 7: 06/23/18 13:06 06/23/18 13:06 Labs: Laboratory Last Values WBC 5.4 K/mm3 (4.5-11.0) 06/23/18 13:06 RBC 4.20 M/mm3 (3.65-5.03) 06/23/18 13:06 Hgb 12.0 gm/dl (10.1-14.3) 06/23/18 13:06 Hct 36.9 % (30.3-42.9) 06/23/18 13:06 MCV 88 fl (79-97) 06/23/18 13:06 MCH 29 pg (28-32) 06/23/18 13:06 MCHC 33 % (30-34) 06/23/18 13:06 RDW 14.1 % (13.2-15.2) 06/23/18 13:06 Plt Count 295 K/mm3 (140-440) 06/23/18 13:06 ESR 67 mm/Hr (0-20) 06/24/18 16:11 PT 13.3 Sec. (12.2-14.9) 06/23/18 13:06 INR 0.96 (0.87-1.13) 06/23/18 13:06 APTT 27.7 Sec. (24.2-36.6) 06/23/18 13:06 Sodium 138 mmol/L (137-145) 06/23/18 13:06 Potassium 4.7 mmol/L (3.6-5.0) 06/23/18 13:06 Chloride 103.4 mmol/L (98-107) 06/23/18 13:06 Carbon Dioxide 22 mmol/L (22-30) 06/23/18 13:06 Anion Gap 17 mmol/L 06/23/18 13:06 BUN 13 mg/dL (7-17) 06/23/18 13:06 Creatinine 0.8 mg/dL (0.7-1.2) 06/23/18 13:06 Estimated GFR > 60 ml/min 06/23/18 13:06 BUN/Creatinine Ratio 16 % 06/23/18 13:06 Glucose 90 mg/dL (65-100) 06/23/18 13:06 Calcium 9.1 mg/dL (8.4-10.2) 06/23/18 13:06 Total Bilirubin 0.50 mg/dL (0.1-1.2) 06/23/18 13:06 AST 26 units/L (5-40) 06/23/18 13:06 ALT 25 units/L (7-56) 06/23/18 13:06 Alkaline Phosphatase 88 units/L (35-129) 06/23/18 13:06 Total Creatine Kinase 209 units/L (30-135) H 06/23/18 13:06 Troponin T < 0.010 ng/mL (0.00-0.029) 06/23/18 13:06 C-Reactive Protein 1.90 mg/dL (0.00-1.30) H 06/24/18 16:21 Total Protein 7.8 g/dL (6.3-8.2) 06/23/18 13:06 Albumin 3.5 g/dL (3.9-5) L 06/23/18 13:06 Albumin/Globulin Ratio 0.8 % 06/23/18 13:06 Triglycerides 68 mg/dL (2-149) 06/24/18 04:40 Cholesterol 147 mg/dL (50-199) 06/24/18 04:40 LDL Cholesterol Direct 99 mg/dL (50-130) 06/24/18 04:40 HDL Cholesterol 43 mg/dL (40-59) 06/24/18 04:40 Cholesterol/HDL Ratio 3.41 % 06/24/18 04:40 Vitamin B12 514.3 pg/mL (211-911) 06/24/18 16:20 Folate 17.06 ng/mL (7.3-26.0) 06/24/18 16:21 TSH 2.000 mlU/mL (0.270-4.200) 06/23/18 13:06 Free T4 1.23 ng/dL (0.76-1.46) 06/24/18 16:11 Urine Color Yellow (Yellow) 06/23/18 13:06 Urine Turbidity Clear (Clear) 06/23/18 13:06 Urine pH 6.0 (5.0-7.0) 06/23/18 13:06 Ur Specific [place] 1.014 (1.003-1.030) 06/23/18 13:06 Urine Protein <15 mg/dl mg/dL (Negative) 06/23/18 13:06 Urine Glucose (UA) Neg mg/dL (Negative) 06/23/18 13:06 Urine Ketones Neg mg/dL (Negative) 06/23/18 13:06 Urine Blood Neg (Negative) 06/23/18 13:06 Urine Nitrite Neg (Negative) 06/23/18 13:06 Urine Bilirubin Neg (Negative) 06/23/18 13:06 Urine Urobilinogen < 2.0 mg/dL (<2.0) 06/23/18 13:06 Ur Leukocyte Esterase Neg (Negative) 06/23/18 13:06 Urine WBC (Auto) 1.0 /HPF (0.0-6.0) 06/23/18 13:06 Urine RBC (Auto) 3.0 /HPF (0.0-6.0) 06/23/18 13:06 U Epithel Cells (Auto) < 1.0 /HPF (0-13.0) 06/23/18 13:06 Urine Bacteria (Auto) 1+ /HPF (Negative) 06/23/18 13:06 Urine Mucus Few /HPF 06/23/18 13:06 Salicylates < 0.3 mg/dL (2.8-20.0) L 06/23/18 13:06 Acetaminophen < 5.0 ug/mL (10.0-30.0) L 06/23/18 13:06 Valproic Acid 101.4 ug/mL (50-100) H 06/26/18 11:03 Plasma/Serum Alcohol < 0.01 % (0-0.07) 06/23/18 13:06
[2018-06-26] MEDS: DESYREL PO SCH (21:54)
[2018-06-27] MEDS: ASPIRIN PO SCH (09:22)
--- NOTE | 2018-06-27 15:18 | Progress Note ---
Assessment and Plan Assessment and plan: --Aphasia; unknown etiology, response to very simple commands Daughter reports patient stopped talking and is noncommunicative -Seizure generalized; seizure-like activities, no new episodes of seizures Seizure precautions, antiepileptic medications, Ativan when necessary Neuro workup is in progress, MRI/MRA could not be done due to technical reasons Possible MRI MRA in 2 days, neurology evaluated the patient --Hypertension; continue current antihypertensives and when necessary medications --History of memory loss; Supportive care, check B12 and folic acid vitamin D levels --DVT prophylaxis; Lovenox Continue current management, Follow MRI,MRA DC planning but case management possible placement History Interval history: Patient seen and examined medical record for review of Patient is sleeping easily awakens noncommunicative Neuro workup is in progress Vital signs reviewed stable Hospitalist Physical - Constitutional Vitals: Temp Pulse Resp BP Pulse Ox 98.1 F 91 H 16 106/61 96 06/27/18 12:21 06/27/18 12:21 06/27/18 12:21 06/27/18 12:21 06/27/18 12:21 General appearance: Present: no acute distress, well-nourished, obese, other ( noncommunicative) - EENT Eyes: Present: PERRL, EOM intact - Neck Neck: Present: supple, normal ROM - Respiratory Respiratory effort: normal Respiratory: bilateral: diminished, negative: rales, rhonchi, wheezing - Cardiovascular Rhythm: regular Heart Sounds: Present: S1 & S2 - Extremities Extremities: no ischemia, No edema - Abdominal General gastrointestinal: soft, non-tender, non-distended, normal bowel sounds - Integumentary Integumentary: Present: clear, warm - Psychiatric Psychiatric: other (uncommunicative) - Neurologic Neurologic: other (noncommunicative) Results - Labs CBC & Chem 7: 06/23/18 13:06 06/23/18 13:06 Labs: Laboratory Last Values WBC 5.4 K/mm3 (4.5-11.0) 06/23/18 13:06 RBC 4.20 M/mm3 (3.65-5.03) 06/23/18 13:06 Hgb 12.0 gm/dl (10.1-14.3) 06/23/18 13:06 Hct 36.9 % (30.3-42.9) 06/23/18 13:06 MCV 88 fl (79-97) 06/23/18 13:06 MCH 29 pg (28-32) 06/23/18 13:06 MCHC 33 % (30-34) 06/23/18 13:06 RDW 14.1 % (13.2-15.2) 06/23/18 13:06 Plt Count 295 K/mm3 (140-440) 06/23/18 13:06 ESR 67 mm/Hr (0-20) 06/24/18 16:11 PT 13.3 Sec. (12.2-14.9) 06/23/18 13:06 INR 0.96 (0.87-1.13) 06/23/18 13:06 APTT 27.7 Sec. (24.2-36.6) 06/23/18 13:06 Sodium 138 mmol/L (137-145) 06/23/18 13:06 Potassium 4.7 mmol/L (3.6-5.0) 06/23/18 13:06 Chloride 103.4 mmol/L (98-107) 06/23/18 13:06 Carbon Dioxide 22 mmol/L (22-30) 06/23/18 13:06 Anion Gap 17 mmol/L 06/23/18 13:06 BUN 13 mg/dL (7-17) 06/23/18 13:06 Creatinine 0.8 mg/dL (0.7-1.2) 06/23/18 13:06 Estimated GFR > 60 ml/min 06/23/18 13:06 BUN/Creatinine Ratio 16 % 06/23/18 13:06 Glucose 90 mg/dL (65-100) 06/23/18 13:06 Calcium 9.1 mg/dL (8.4-10.2) 06/23/18 13:06 Total Bilirubin 0.50 mg/dL (0.1-1.2) 06/23/18 13:06 AST 26 units/L (5-40) 06/23/18 13:06 ALT 25 units/L (7-56) 06/23/18 13:06 Alkaline Phosphatase 88 units/L (35-129) 06/23/18 13:06 Total Creatine Kinase 209 units/L (30-135) H 06/23/18 13:06 Troponin T < 0.010 ng/mL (0.00-0.029) 06/23/18 13:06 C-Reactive Protein 1.90 mg/dL (0.00-1.30) H 06/24/18 16:21 Total Protein 7.8 g/dL (6.3-8.2) 06/23/18 13:06 Albumin 3.5 g/dL (3.9-5) L 06/23/18 13:06 Albumin/Globulin Ratio 0.8 % 06/23/18 13:06 Triglycerides 68 mg/dL (2-149) 06/24/18 04:40 Cholesterol 147 mg/dL (50-199) 06/24/18 04:40 LDL Cholesterol Direct 99 mg/dL (50-130) 06/24/18 04:40 HDL Cholesterol 43 mg/dL (40-59) 06/24/18 04:40 Cholesterol/HDL Ratio 3.41 % 06/24/18 04:40 Vitamin B12 514.3 pg/mL (211-911) 06/24/18 16:20 Folate 17.06 ng/mL (7.3-26.0) 06/24/18 16:21 TSH 2.000 mlU/mL (0.270-4.200) 06/23/18 13:06 Free T4 1.23 ng/dL (0.76-1.46) 06/24/18 16:11 Urine Color Yellow (Yellow) 06/23/18 13:06 Urine Turbidity Clear (Clear) 06/23/18 13:06 Urine pH 6.0 (5.0-7.0) 06/23/18 13:06 Ur Specific [place] 1.014 (1.003-1.030) 06/23/18 13:06 Urine Protein <15 mg/dl mg/dL (Negative) 06/23/18 13:06 Urine Glucose (UA) Neg mg/dL (Negative) 06/23/18 13:06 Urine Ketones Neg mg/dL (Negative) 06/23/18 13:06 Urine Blood Neg (Negative) 06/23/18 13:06 Urine Nitrite Neg (Negative) 06/23/18 13:06 Urine Bilirubin Neg (Negative) 06/23/18 13:06 Urine Urobilinogen < 2.0 mg/dL (<2.0) 06/23/18 13:06 Ur Leukocyte Esterase Neg (Negative) 06/23/18 13:06 Urine WBC (Auto) 1.0 /HPF (0.0-6.0) 06/23/18 13:06 Urine RBC (Auto) 3.0 /HPF (0.0-6.0) 06/23/18 13:06 U Epithel Cells (Auto) < 1.0 /HPF (0-13.0) 06/23/18 13:06 Urine Bacteria (Auto) 1+ /HPF (Negative) 06/23/18 13:06 Urine Mucus Few /HPF 06/23/18 13:06 Salicylates < 0.3 mg/dL (2.8-20.0) L 06/23/18 13:06 Acetaminophen < 5.0 ug/mL (10.0-30.0) L 06/23/18 13:06 Valproic Acid 101.4 ug/mL (50-100) H 06/26/18 11:03 Plasma/Serum Alcohol < 0.01 % (0-0.07) 06/23/18 13:06
[2018-06-27] MEDS: DESYREL PO SCH (21:44)
[2018-06-28] MEDS: ASPIRIN PO SCH (10:02)
[2018-06-28 11:26] LABS: Basophils % (Auto) 0.2 % (0.0-1.8); Eosinophils # (Auto) 0.1 K/mm3 (0.0-0.4); Eosinophils % (Auto) 2.3 % (0.0-4.3); Hematocrit 38.2 % (30.3-42.9); Hemoglobin 12.2 gm/dl (10.1-14.3); Lymphocytes # (Auto) 1.5 K/mm3 (1.2-5.4); Mean Corpuscular HGB Conc 32 % (30-34); Mean Corpuscular Hemoglobin 28 pg (28-32); Mean Corpuscular Volume 88 fl (79-97); Monocytes # (Auto) 0.3 K/mm3 (0.0-0.8); Monocytes % (Auto) 6.1 % (0.0-7.3); Platelet Count 251 K/mm3 (140-440); Red Blood Count 4.33 M/mm3 (3.65-5.03); Red Cell Distribution Width 14.2 % (13.2-15.2)
[2018-06-28 11:49] LABS: Alanine Aminotransferase 12 units/L (7-56); Albumin 3.6 g/dL (3.9-5); BUN/Creatinine Ratio 29; Blood Urea Nitrogen 23 mg/dL (7-17); Calcium 9.1 mg/dL (8.4-10.2); Hemolysis Index 40
--- NOTE | 2018-06-28 19:53 | Progress Note ---
Assessment and Plan Assessment and plan: -Seizure generalized; no new episodes of seizures Seizure precautions, antiepileptic medications, Ativan when necessary Neuro workup is in progress, follow MRI/MRA --Dysphasia; unknown etiology, response to very simple commands Daughter reports patient stopped talking and is noncommunicative --Hypertension; continue current antihypertensives and when necessary medications --History of memory loss; Supportive care, check B12 and folic acid vitamin D levels --DVT prophylaxis; Lovenox Continue current management, Follow MRI,MRA DC planning but case management possible placement History Interval history: Patient is seen and examined medical records reviewed Evaluation has intermittent confusion requiring restraints Tolerated physical therapy Vital signs stable Hospitalist Physical - Constitutional Vitals: Temp Pulse Resp BP Pulse Ox 98.2 F 81 18 128/78 98 06/28/18 17:06 06/28/18 17:06 06/28/18 17:06 06/28/18 17:06 06/28/18 17:06 General appearance: Present: no acute distress, well-nourished, obese, other ( noncommunicative) - EENT Eyes: Present: PERRL, EOM intact - Neck Neck: Present: supple, normal ROM - Respiratory Respiratory effort: normal Respiratory: bilateral: diminished, negative: rales, rhonchi, wheezing - Cardiovascular Rhythm: regular Heart Sounds: Present: S1 & S2 - Extremities Extremities: no ischemia, No edema - Abdominal General gastrointestinal: soft, non-tender, non-distended, normal bowel sounds - Integumentary Integumentary: Present: clear, warm - Psychiatric Psychiatric: other (noncommunicative) - Neurologic Neurologic: other (noncommunicative) Results - Labs CBC & Chem 7: 06/28/18 10:45 06/28/18 10:45 Labs: Laboratory Last Values WBC 5.5 K/mm3 (4.5-11.0) 06/28/18 10:45 RBC 4.33 M/mm3 (3.65-5.03) 06/28/18 10:45 Hgb 12.2 gm/dl (10.1-14.3) 06/28/18 10:45 Hct 38.2 % (30.3-42.9) 06/28/18 10:45 MCV 88 fl (79-97) 06/28/18 10:45 MCH 28 pg (28-32) 06/28/18 10:45 MCHC 32 % (30-34) 06/28/18 10:45 RDW 14.2 % (13.2-15.2) 06/28/18 10:45 Plt Count 251 K/mm3 (140-440) 06/28/18 10:45 Lymph % (Auto) 28.0 % (13.4-35.0) 06/28/18 10:45 [place] % (Auto) 6.1 % (0.0-7.3) 06/28/18 10:45 Eos % (Auto) 2.3 % (0.0-4.3) 06/28/18 10:45 Baso % (Auto) 0.2 % (0.0-1.8) 06/28/18 10:45 Lymph # 1.5 K/mm3 (1.2-5.4) 06/28/18 10:45 [place] # 0.3 K/mm3 (0.0-0.8) 06/28/18 10:45 Eos # 0.1 K/mm3 (0.0-0.4) 06/28/18 10:45 Baso # 0.0 K/mm3 (0.0-0.1) 06/28/18 10:45 Seg Neutrophils % 63.4 % (40.0-70.0) 06/28/18 10:45 Seg Neutrophils # 3.5 K/mm3 (1.8-7.7) 06/28/18 10:45 ESR 67 mm/Hr (0-20) 06/24/18 16:11 PT 13.3 Sec. (12.2-14.9) 06/23/18 13:06 INR 0.96 (0.87-1.13) 06/23/18 13:06 APTT 27.7 Sec. (24.2-36.6) 06/23/18 13:06 Sodium 144 mmol/L (137-145) 06/28/18 10:45 Potassium 4.3 mmol/L (3.6-5.0) 06/28/18 10:45 Chloride 106.1 mmol/L (98-107) 06/28/18 10:45 Carbon Dioxide 27 mmol/L (22-30) 06/28/18 10:45 Anion Gap 15 mmol/L 06/28/18 10:45 BUN 23 mg/dL (7-17) H 06/28/18 10:45 Creatinine 0.8 mg/dL (0.7-1.2) 06/28/18 10:45 Estimated GFR > 60 ml/min 06/28/18 10:45 BUN/Creatinine Ratio 29 % 06/28/18 10:45 Glucose 84 mg/dL (65-100) 06/28/18 10:45 Calcium 9.1 mg/dL (8.4-10.2) 06/28/18 10:45 Magnesium 1.80 mg/dL (1.7-2.3) 06/28/18 10:45 Total Bilirubin 0.50 mg/dL (0.1-1.2) 06/28/18 10:45 AST 22 units/L (5-40) 06/28/18 10:45 ALT 12 units/L (7-56) 06/28/18 10:45 Alkaline Phosphatase 84 units/L (35-129) 06/28/18 10:45 Total Creatine Kinase 209 units/L (30-135) H 06/23/18 13:06 Troponin T < 0.010 ng/mL (0.00-0.029) 06/23/18 13:06 C-Reactive Protein 1.90 mg/dL (0.00-1.30) H 06/24/18 16:21 Total Protein 7.5 g/dL (6.3-8.2) 06/28/18 10:45 Albumin 3.6 g/dL (3.9-5) L 06/28/18 10:45 Albumin/Globulin Ratio 0.9 % 06/28/18 10:45 Triglycerides 68 mg/dL (2-149) 06/24/18 04:40 Cholesterol 147 mg/dL (50-199) 06/24/18 04:40 LDL Cholesterol Direct 99 mg/dL (50-130) 06/24/18 04:40 HDL Cholesterol 43 mg/dL (40-59) 06/24/18 04:40 Cholesterol/HDL Ratio 3.41 % 06/24/18 04:40 Vitamin B12 514.3 pg/mL (211-911) 06/24/18 16:20 25-OH Vitamin D Total 20 ng/mL (30-100) L 06/24/18 16:11 25-Hydroxy Vitamin D2 . 06/24/18 16:11 25-Hydroxy Vitamin D3 . 06/24/18 16:11 Folate 17.06 ng/mL (7.3-26.0) 06/24/18 16:21 TSH 2.000 mlU/mL (0.270-4.200) 06/23/18 13:06 Free T4 1.23 ng/dL (0.76-1.46) 06/24/18 16:11 Urine Color Yellow (Yellow) 06/23/18 13:06 Urine Turbidity Clear (Clear) 06/23/18 13:06 Urine pH 6.0 (5.0-7.0) 06/23/18 13:06 Ur Specific [place] 1.014 (1.003-1.030) 06/23/18 13:06 Urine Protein <15 mg/dl mg/dL (Negative) 06/23/18 13:06 Urine Glucose (UA) Neg mg/dL (Negative) 06/23/18 13:06 Urine Ketones Neg mg/dL (Negative) 06/23/18 13:06 Urine Blood Neg (Negative) 06/23/18 13:06 Urine Nitrite Neg (Negative) 06/23/18 13:06 Urine Bilirubin Neg (Negative) 06/23/18 13:06 Urine Urobilinogen < 2.0 mg/dL (<2.0) 06/23/18 13:06 Ur Leukocyte Esterase Neg (Negative) 06/23/18 13:06 Urine WBC (Auto) 1.0 /HPF (0.0-6.0) 06/23/18 13:06 Urine RBC (Auto) 3.0 /HPF (0.0-6.0) 06/23/18 13:06 U Epithel Cells (Auto) < 1.0 /HPF (0-13.0) 06/23/18 13:06 Urine Bacteria (Auto) 1+ /HPF (Negative) 06/23/18 13:06 Urine Mucus Few /HPF 06/23/18 13:06 Salicylates < 0.3 mg/dL (2.8-20.0) L 06/23/18 13:06 Acetaminophen < 5.0 ug/mL (10.0-30.0) L 06/23/18 13:06 Valproic Acid 101.4 ug/mL (50-100) H 06/26/18 11:03 Plasma/Serum Alcohol < 0.01 % (0-0.07) 06/23/18 13:06
[2018-06-28] MEDS: DESYREL PO SCH (21:20)
[2018-06-29] MEDS: ASPIRIN PO SCH (09:37)
--- NOTE | 2018-06-29 12:48 | Progress Note ---
Assessment and Plan Assessment and plan: -Seizure generalized; no new episodes of seizures Seizure precautions, antiepileptic medications, Ativan when necessary Neuro workup is in progress, follow MRI/MRA --Dysphasia; unknown etiology, response to very simple commands Daughter reports patient stopped talking and is noncommunicative --Hypertension; continue current antihypertensives and when necessary medications --History of memory loss; Supportive care, check B12 and folic acid vitamin D levels --DVT prophylaxis; Lovenox Continue current management, Follow MRI,MRA DC planning but case management possible placement History Interval history: Patient seen and examined medical records reviewed No new events reported, Awaiting MRI/MRA Patient is nonverbal and not in acute distress Vital signs reviewed Hospitalist Physical - Constitutional Vitals: Temp Pulse Resp BP Pulse Ox 98.6 F 60 16 114/69 100 06/29/18 05:10 06/29/18 05:10 06/29/18 05:10 06/29/18 05:10 06/29/18 05:10 General appearance: Present: no acute distress, well-nourished, obese, other ( noncommunicative) - EENT Eyes: Present: PERRL, EOM intact - Neck Neck: Present: supple, normal ROM - Respiratory Respiratory effort: normal Respiratory: bilateral: diminished, negative: rales, rhonchi, wheezing - Cardiovascular Rhythm: regular Heart Sounds: Present: S1 & S2 - Extremities Extremities: no ischemia, No edema - Abdominal General gastrointestinal: soft, non-tender, non-distended, normal bowel sounds - Integumentary Integumentary: Present: clear, warm - Psychiatric Psychiatric: other (nonverbal) - Neurologic Neurologic: other (nonverbal) Results - Labs CBC & Chem 7: 06/28/18 10:45 06/28/18 10:45 Labs: Laboratory Last Values WBC 5.5 K/mm3 (4.5-11.0) 06/28/18 10:45 RBC 4.33 M/mm3 (3.65-5.03) 06/28/18 10:45 Hgb 12.2 gm/dl (10.1-14.3) 06/28/18 10:45 Hct 38.2 % (30.3-42.9) 06/28/18 10:45 MCV 88 fl (79-97) 06/28/18 10:45 MCH 28 pg (28-32) 06/28/18 10:45 MCHC 32 % (30-34) 06/28/18 10:45 RDW 14.2 % (13.2-15.2) 06/28/18 10:45 Plt Count 251 K/mm3 (140-440) 06/28/18 10:45 Lymph % (Auto) 28.0 % (13.4-35.0) 06/28/18 10:45 [place] % (Auto) 6.1 % (0.0-7.3) 06/28/18 10:45 Eos % (Auto) 2.3 % (0.0-4.3) 06/28/18 10:45 Baso % (Auto) 0.2 % (0.0-1.8) 06/28/18 10:45 Lymph # 1.5 K/mm3 (1.2-5.4) 06/28/18 10:45 [place] # 0.3 K/mm3 (0.0-0.8) 06/28/18 10:45 Eos # 0.1 K/mm3 (0.0-0.4) 06/28/18 10:45 Baso # 0.0 K/mm3 (0.0-0.1) 06/28/18 10:45 Seg Neutrophils % 63.4 % (40.0-70.0) 06/28/18 10:45 Seg Neutrophils # 3.5 K/mm3 (1.8-7.7) 06/28/18 10:45 ESR 67 mm/Hr (0-20) 06/24/18 16:11 PT 13.3 Sec. (12.2-14.9) 06/23/18 13:06 INR 0.96 (0.87-1.13) 06/23/18 13:06 APTT 27.7 Sec. (24.2-36.6) 06/23/18 13:06 Sodium 144 mmol/L (137-145) 06/28/18 10:45 Potassium 4.3 mmol/L (3.6-5.0) 06/28/18 10:45 Chloride 106.1 mmol/L (98-107) 06/28/18 10:45 Carbon Dioxide 27 mmol/L (22-30) 06/28/18 10:45 Anion Gap 15 mmol/L 06/28/18 10:45 BUN 23 mg/dL (7-17) H 06/28/18 10:45 Creatinine 0.8 mg/dL (0.7-1.2) 06/28/18 10:45 Estimated GFR > 60 ml/min 06/28/18 10:45 BUN/Creatinine Ratio 29 % 06/28/18 10:45 Glucose 84 mg/dL (65-100) 06/28/18 10:45 Calcium 9.1 mg/dL (8.4-10.2) 06/28/18 10:45 Magnesium 1.80 mg/dL (1.7-2.3) 06/28/18 10:45 Total Bilirubin 0.50 mg/dL (0.1-1.2) 06/28/18 10:45 AST 22 units/L (5-40) 06/28/18 10:45 ALT 12 units/L (7-56) 06/28/18 10:45 Alkaline Phosphatase 84 units/L (35-129) 06/28/18 10:45 Total Creatine Kinase 209 units/L (30-135) H 06/23/18 13:06 Troponin T < 0.010 ng/mL (0.00-0.029) 06/23/18 13:06 C-Reactive Protein 1.90 mg/dL (0.00-1.30) H 06/24/18 16:21 Total Protein 7.5 g/dL (6.3-8.2) 06/28/18 10:45 Albumin 3.6 g/dL (3.9-5) L 06/28/18 10:45 Albumin/Globulin Ratio 0.9 % 06/28/18 10:45 Triglycerides 68 mg/dL (2-149) 06/24/18 04:40 Cholesterol 147 mg/dL (50-199) 06/24/18 04:40 LDL Cholesterol Direct 99 mg/dL (50-130) 06/24/18 04:40 HDL Cholesterol 43 mg/dL (40-59) 06/24/18 04:40 Cholesterol/HDL Ratio 3.41 % 06/24/18 04:40 Vitamin B12 514.3 pg/mL (211-911) 06/24/18 16:20 25-OH Vitamin D Total 20 ng/mL (30-100) L 06/24/18 16:11 25-Hydroxy Vitamin D2 . 06/24/18 16:11 25-Hydroxy Vitamin D3 . 06/24/18 16:11 Folate 17.06 ng/mL (7.3-26.0) 06/24/18 16:21 TSH 2.000 mlU/mL (0.270-4.200) 06/23/18 13:06 Free T4 1.23 ng/dL (0.76-1.46) 06/24/18 16:11 Urine Color Yellow (Yellow) 06/23/18 13:06 Urine Turbidity Clear (Clear) 06/23/18 13:06 Urine pH 6.0 (5.0-7.0) 06/23/18 13:06 Ur Specific [place] 1.014 (1.003-1.030) 06/23/18 13:06 Urine Protein <15 mg/dl mg/dL (Negative) 06/23/18 13:06 Urine Glucose (UA) Neg mg/dL (Negative) 06/23/18 13:06 Urine Ketones Neg mg/dL (Negative) 06/23/18 13:06 Urine Blood Neg (Negative) 06/23/18 13:06 Urine Nitrite Neg (Negative) 06/23/18 13:06 Urine Bilirubin Neg (Negative) 06/23/18 13:06 Urine Urobilinogen < 2.0 mg/dL (<2.0) 06/23/18 13:06 Ur Leukocyte Esterase Neg (Negative) 06/23/18 13:06 Urine WBC (Auto) 1.0 /HPF (0.0-6.0) 06/23/18 13:06 Urine RBC (Auto) 3.0 /HPF (0.0-6.0) 06/23/18 13:06 U Epithel Cells (Auto) < 1.0 /HPF (0-13.0) 06/23/18 13:06 Urine Bacteria (Auto) 1+ /HPF (Negative) 06/23/18 13:06 Urine Mucus Few /HPF 06/23/18 13:06 Salicylates < 0.3 mg/dL (2.8-20.0) L 06/23/18 13:06 Acetaminophen < 5.0 ug/mL (10.0-30.0) L 06/23/18 13:06 Valproic Acid 101.4 ug/mL (50-100) H 06/26/18 11:03 Plasma/Serum Alcohol < 0.01 % (0-0.07) 06/23/18 13:06
[2018-06-29] MEDS ORDERED: ATIVAN IV ONE (14:37)
[2018-06-29] MEDS: DESYREL PO SCH (21:42)
[2018-06-30] MEDS: ASPIRIN PO SCH (10:06)
[2018-06-30] MEDS ORDERED: ATIVAN IV ONE ×2 (14:49→15:22)
--- NOTE | 2018-06-30 18:38 | Magnetic Resonance Report ---
FINAL REPORT EXAM: MR BRAIN WO CON HISTORY: stroke TECHNIQUE: Multiplanar MRI of the brain. No contrast administered. PRIORS: None. FINDINGS: Brain volume is normal for age. Mild, patchy foci of T2 and FLAIR bright signal in the periventricular and subcortical white matter are nonspecific, but may relate to chronic small vessel ischemic change versus demyelinating disease. No acute infarct seen on diffusion-weighted imaging. No parenchymal mass, mass-effect, hemorrhage, midline shift or hydrocephalus. No pathologic extra-axial fluid collection. No pineal region or sellar masses. No cerebellar tonsillar herniation. Possible small, mucous retention cyst versus polyp in the left maxillary sinus. IMPRESSION: 1. No acute intracranial findings. 2. Findings suggesting chronic ischemic changes versus sequelae of demyelinating disease.
--- NOTE | 2018-06-30 18:47 | Magnetic Resonance Report ---
FINAL REPORT EXAM: MR MRA/MRV HEAD WO CON HISTORY: stroke TECHNIQUE: Multiplanar MRA of [place] of [place]. No contrast administered. PRIORS: None. FINDINGS: Normal flow related enhancement in the basilar and bilateral internal carotid arteries and their main intracranial branches. Mild attenuation of M3 or sylvian fissure segment of left MCA on MIP sequence may be in part technical or artifactual. No abnormal aneurysmal dilatation, focal signal dropout or signal void to suggest significant stenosis or apparent occlusion. IMPRESSION: 1. No significant findings.
--- NOTE | 2018-06-30 20:02 | Progress Note ---
Assessment and Plan Assessment and plan: -Seizure generalized; no new episodes of seizures Seizure precautions, antiepileptic medications, Ativan when necessary Neuro workup is in progress, follow MRI/MRA --Dysphasia; unknown etiology, response to very simple commands Daughter reports patient stopped talking and is noncommunicative --Hypertension; continue current antihypertensives and when necessary medications --History of memory loss; Supportive care, check B12 and folic acid vitamin D levels --DVT prophylaxis; Lovenox Continue current management, Follow MRI,MRA DC planning but case management possible placement History Interval history: Patient seen and examined medical records reviewed Patient is comfortable nonverbal Vital signs stable MRI/MRA scheduled for today No new events reported by the nursing Hospitalist Physical - Constitutional Vitals: Temp Pulse Resp BP Pulse Ox 97.1 F L 89 20 92/50 96 06/30/18 17:27 06/30/18 17:27 06/30/18 17:27 06/30/18 17:27 06/30/18 17:27 General appearance: Present: no acute distress, well-nourished, obese, other ( noncommunicative) - EENT Eyes: Present: PERRL, EOM intact - Neck Neck: Present: supple, normal ROM - Respiratory Respiratory effort: normal Respiratory: bilateral: diminished, negative: rales, rhonchi, wheezing - Cardiovascular Rhythm: regular Heart Sounds: Present: S1 & S2 - Extremities Extremities: no ischemia, No edema Peripheral Pulses: within normal limits - Abdominal General gastrointestinal: soft, non-tender, non-distended, normal bowel sounds - Integumentary Integumentary: Present: clear, warm - Psychiatric Psychiatric: appropriate mood/affect, cooperative - Neurologic Neurologic: CNII-XII intact, moves all extremities Results - Labs CBC & Chem 7: 06/28/18 10:45 06/28/18 10:45 Labs: Laboratory Last Values WBC 5.5 K/mm3 (4.5-11.0) 06/28/18 10:45 RBC 4.33 M/mm3 (3.65-5.03) 06/28/18 10:45 Hgb 12.2 gm/dl (10.1-14.3) 06/28/18 10:45 Hct 38.2 % (30.3-42.9) 06/28/18 10:45 MCV 88 fl (79-97) 06/28/18 10:45 MCH 28 pg (28-32) 06/28/18 10:45 MCHC 32 % (30-34) 06/28/18 10:45 RDW 14.2 % (13.2-15.2) 06/28/18 10:45 Plt Count 251 K/mm3 (140-440) 06/28/18 10:45 Lymph % (Auto) 28.0 % (13.4-35.0) 06/28/18 10:45 [place] % (Auto) 6.1 % (0.0-7.3) 06/28/18 10:45 Eos % (Auto) 2.3 % (0.0-4.3) 06/28/18 10:45 Baso % (Auto) 0.2 % (0.0-1.8) 06/28/18 10:45 Lymph # 1.5 K/mm3 (1.2-5.4) 06/28/18 10:45 [place] # 0.3 K/mm3 (0.0-0.8) 06/28/18 10:45 Eos # 0.1 K/mm3 (0.0-0.4) 06/28/18 10:45 Baso # 0.0 K/mm3 (0.0-0.1) 06/28/18 10:45 Seg Neutrophils % 63.4 % (40.0-70.0) 06/28/18 10:45 Seg Neutrophils # 3.5 K/mm3 (1.8-7.7) 06/28/18 10:45 ESR 67 mm/Hr (0-20) 06/24/18 16:11 PT 13.3 Sec. (12.2-14.9) 06/23/18 13:06 INR 0.96 (0.87-1.13) 06/23/18 13:06 APTT 27.7 Sec. (24.2-36.6) 06/23/18 13:06 Sodium 144 mmol/L (137-145) 06/28/18 10:45 Potassium 4.3 mmol/L (3.6-5.0) 06/28/18 10:45 Chloride 106.1 mmol/L (98-107) 06/28/18 10:45 Carbon Dioxide 27 mmol/L (22-30) 06/28/18 10:45 Anion Gap 15 mmol/L 06/28/18 10:45 BUN 23 mg/dL (7-17) H 06/28/18 10:45 Creatinine 0.8 mg/dL (0.7-1.2) 06/28/18 10:45 Estimated GFR > 60 ml/min 06/28/18 10:45 BUN/Creatinine Ratio 29 % 06/28/18 10:45 Glucose 84 mg/dL (65-100) 06/28/18 10:45 Calcium 9.1 mg/dL (8.4-10.2) 06/28/18 10:45 Magnesium 1.80 mg/dL (1.7-2.3) 06/28/18 10:45 Total Bilirubin 0.50 mg/dL (0.1-1.2) 06/28/18 10:45 AST 22 units/L (5-40) 06/28/18 10:45 ALT 12 units/L (7-56) 06/28/18 10:45 Alkaline Phosphatase 84 units/L (35-129) 06/28/18 10:45 Total Creatine Kinase 209 units/L (30-135) H 06/23/18 13:06 Troponin T < 0.010 ng/mL (0.00-0.029) 06/23/18 13:06 C-Reactive Protein 1.90 mg/dL (0.00-1.30) H 06/24/18 16:21 Total Protein 7.5 g/dL (6.3-8.2) 06/28/18 10:45 Albumin 3.6 g/dL (3.9-5) L 06/28/18 10:45 Albumin/Globulin Ratio 0.9 % 06/28/18 10:45 Triglycerides 68 mg/dL (2-149) 06/24/18 04:40 Cholesterol 147 mg/dL (50-199) 06/24/18 04:40 LDL Cholesterol Direct 99 mg/dL (50-130) 06/24/18 04:40 HDL Cholesterol 43 mg/dL (40-59) 06/24/18 04:40 Cholesterol/HDL Ratio 3.41 % 06/24/18 04:40 Vitamin B1 7 nmol/L (8-30) L 06/24/18 16:11 Vitamin B12 514.3 pg/mL (211-911) 06/24/18 16:20 25-OH Vitamin D Total 20 ng/mL (30-100) L 06/24/18 16:11 25-Hydroxy Vitamin D2 . 06/24/18 16:11 25-Hydroxy Vitamin D3 . 06/24/18 16:11 Folate 17.06 ng/mL (7.3-26.0) 06/24/18 16:21 TSH 2.000 mlU/mL (0.270-4.200) 06/23/18 13:06 Free T4 1.23 ng/dL (0.76-1.46) 06/24/18 16:11 Urine Color Yellow (Yellow) 06/23/18 13:06 Urine Turbidity Clear (Clear) 06/23/18 13:06 Urine pH 6.0 (5.0-7.0) 06/23/18 13:06 Ur Specific [place] 1.014 (1.003-1.030) 06/23/18 13:06 Urine Protein <15 mg/dl mg/dL (Negative) 06/23/18 13:06 Urine Glucose (UA) Neg mg/dL (Negative) 06/23/18 13:06 Urine Ketones Neg mg/dL (Negative) 06/23/18 13:06 Urine Blood Neg (Negative) 06/23/18 13:06 Urine Nitrite Neg (Negative) 06/23/18 13:06 Urine Bilirubin Neg (Negative) 06/23/18 13:06 Urine Urobilinogen < 2.0 mg/dL (<2.0) 06/23/18 13:06 Ur Leukocyte Esterase Neg (Negative) 06/23/18 13:06 Urine WBC (Auto) 1.0 /HPF (0.0-6.0) 06/23/18 13:06 Urine RBC (Auto) 3.0 /HPF (0.0-6.0) 06/23/18 13:06 U Epithel Cells (Auto) < 1.0 /HPF (0-13.0) 06/23/18 13:06 Urine Bacteria (Auto) 1+ /HPF (Negative) 06/23/18 13:06 Urine Mucus Few /HPF 06/23/18 13:06 Salicylates < 0.3 mg/dL (2.8-20.0) L 06/23/18 13:06 Acetaminophen < 5.0 ug/mL (10.0-30.0) L 06/23/18 13:06 Valproic Acid 101.4 ug/mL (50-100) H 06/26/18 11:03 Plasma/Serum Alcohol < 0.01 % (0-0.07) 06/23/18 13:06
[2018-06-30] MEDS: DESYREL PO SCH (21:51)
--- NOTE | 2018-07-01 08:10 | Discharge Summary ---
Providers - Providers Date of Admission: 06/23/18 14:42 Date of discharge: 07/01/18 Attending physician: EDDIE VANN 06/23/18 14:42 Occupational Therapy Evaluate and Treat [CONS] Routine Comment: Reason For Exam: Neuro deficits Physical Therapy Evaluation and Treat [CONS] Routine Comment: Reason For Exam: Neuro deficits 06/24/18 09:14 Speech Therapy Evaluation and Treat [CONS] Routine Reason For Exam: stroke protocol 06/24/18 11:36 Consult to Physician [CONS] Routine Comment: I spoke to Consulting Provider: DASH TA Physician Instructions: Reason For Exam: ? seizures/Possible CVA Primary care physician: [employer] Hospitalization Reason for admission: altered level of consciousness/inability to move/E Condition: Good Pertinent studies: CT head; negative Carotid Doppler; < 50% stenosis MRI brain; no acute intracranial abnormality chronic ischemic changes MRA brain; normal study Echocardiogram; ejection fraction 50-55%, negative bubble study Chest x-ray; no acute abnormality EEG; abnormal waking and drowsy EEG, intermittent possible epileptiform activity left temporal region Hospital course: 52-year-old female patient with significant history of dementia and debility history of memory loss aphasia was admitted through emergency room with confusion and inability to move and strokelike symptoms. Patient was not a candidate for TPA, Admitted through emergency room symptomatically managed Had extensive stroke workup which was negative, Patient also had seizure-like activity. Evaluation by neurology. EEG findings are noted, he said physical therapy occupational therapy Today The patient is comfortable no new complaints Remains noncommunicative, hemodynamically stable Physical examination is unremarkable Patient is hemodynamically and clinically stable for discharge And follow with primary care physician, private neurologist for further evaluation and management Discharge diagnosis; -Seizure generalized; seizure medications --Dysphasia; CVA workup negative --Hypertension; stable --History of memory loss; --Dyslipidemia; on statin [facility] Time spent for discharge: 35 min Core Measure Documentation - Palliative Care Palliative Care/ Comfort Measures: Not Applicable - Core Measures Any of the following diagnoses?: none Exam - Constitutional Vitals: Temp Pulse Resp BP Pulse Ox 98.1 F 79 16 123/71 97 07/01/18 05:58 07/01/18 05:58 07/01/18 05:58 07/01/18 05:58 07/01/18 05:58 General appearance: Present: no acute distress, well-nourished, other ( noncommunicative) - EENT Eyes: Present: PERRL, EOM intact - Neck Neck: Present: supple, normal ROM - Respiratory Respiratory effort: normal Respiratory: negative: rales, rhonchi, wheezing - Cardiovascular Rhythm: regular Heart Sounds: Present: S1 & S2 - Extremities Extremities: no ischemia, No edema - Abdominal General gastrointestinal: Present: soft, non-tender, non-distended, normal bowel sounds - Integumentary Integumentary: Present: clear, warm - Musculoskeletal Musculoskeletal: strength equal bilaterally - Psychiatric Psychiatric: other (noncommunicative) - Neurologic Neurologic: moves all extremities Plan Activity: advance as tolerated, fall precautions, other (seizure precautions) Diet: advance as tolerated, other (soft diet) Special Instructions: physical therapy Additional Instructions: Fall precautions. Evaluation has impaired memory. Chronically encephalopathic. Minimally communicative Follow up with: CATHRYN MENDOZA MD [Primary Care Provider] - 3-5 Days LILLIE FERRIS MD [Staff Physician] - 7 Days
[2018-07-01] MEDS: ASPIRIN PO SCH (10:08)
[2018-07-01 13:47] VITALS: BP 106/63
--- NOTE | 2018-07-01 17:28 | Vascular Lab Report ---
CAROTID DUPLEX STUDY: RIGHT PSVEDV CCA PROX:526 CCA DIST:4210 ICA PROX:309 ICA MID:4618 ICA DIST:5419 ECA: 6010 VERT: 41 13 LEFT PSVEDV CCA PROX:03651 CCA DIST:5612 ICA PROX:3812 ICA MID:7124 ICA DIST:8129 ECA: 6713 VERT: 59 21 REASON FOR EXAM: Stroke. COMMENTS ON THE RIGHT: Doppler frequency analysis is consistent with 16 to 49 percent diameter reduction of the internal carotid artery. Minimal amount of plaque is seen. The common carotid artery is patent. The external carotid artery is patent. The vertebral artery has antegrade flow. COMMENTS ON THE LEFT: Doppler frequency analysis is consistent with 16 to 49 percent diameter reduction of the internal carotid artery. Minimal amount of plaque is seen. The common carotid artery is patent. The external carotid artery is patent. The vertebral artery has antegrade flow. IMPRESSION: Less than 50% diameter reduction in the internal carotid arteries bilaterally.
== END 2018-07-01 15:00 | DRG 100 ==
LOC: ED 10:41 → 4A 14:42 → 3A 06-24 18:57
PROVIDERS: ADMIT Internal Medicine; ATTEND Internal Medicine
PROC: 4A10X4Z Monitoring of Central Nervous Electrical Activity, External Approach (ICD-10-PCS; principal; 2018-06-24)
DX: R56.9 Unspecified convulsions (principal); G93.40 Encephalopathy, unspecified; R47.01 Aphasia; R41.3 Other amnesia; F03.90 Unspecified dementia, unspecified severity, without behavioral disturbance, psychotic disturbance, mood disturbance, and anxiety; R47.02 Dysphasia; I10 Essential (primary) hypertension; R29.716 NIHSS score 16; E78.5 Hyperlipidemia, unspecified; Z90.710 Acquired absence of both cervix and uterus; Z82.49 Family history of ischemic heart disease and other diseases of the circulatory system; Z88.0 Allergy status to penicillin
CPT/HCPCS: 36415; 51701; 70450; 70544; 70551; 71045; 80053; 80061; 80164; 80320; 81001; 82306; 82550; 82607; 82747; 83735; 84425; 84439; 84443; 84484; 85025; 85027; 85610; 85652; 85730; 86140; 93005; 93010; 93306; 93880; 95819; 96374; A9270-GY; G0480; G8978-GP; G8979-GP; G8987-GO; G8988-GO; G8989-GO; J2060; J2405; J7040